=== PATIENT | female | born 1935 | race Caucasian/White ===

== ENCOUNTER 2023-08-07 14:03 | Emergency (ER) | payer OTHER, SELFPAY ==
[2023-08-07 14:10] VITALS: BP 210/110
[2023-08-07 14:28] LABS: % Basophils 0.7 % (0-2); % Eosinophils 1.8 % (0-6); % Immature Granulocytes 0.2 % (0-0.5); % Lymphocytes 23.8 % (20.5-51.1); % Monocytes 10.8 % (1.7-9.3); % Neutrophils 62.7 % (42.2-75.2); Absolute Eosinophils 0.1 10^3/uL (0-0.7); Absolute Lymphocytes 1.4 10^3/uL (1.2-3.4); Absolute Monocytes 0.7 10^3/uL (0.1-0.6); Absolute Neutrophils 3.8 10^3/uL (1.4-6.5); Hematocrit 33.2 % (37.0-47.0); Mean Corp Hgb Conc. 36.1 g/dL (33.0-37.0); Mean Corpuscular Hgb 33.8 pg (27.0-31.0); Mean Corpuscular Volume 93.5 fL (81.0-99.0); Mean Platelet Volume 9.1 fL (7.4-10.4); Nucleated Red Blood Cells % 0 %; Platelet Count 362 10^3/uL (130-400); Red Blood Cell Count 3.55 10^6/uL (4.20-5.40); Red Cell Dist. Width 12.6 % (11.5-14.5)
[2023-08-07 14:44] LABS: ALT (SGPT) 17 U/L (0-35); AST (SGOT) 28 U/L (14-36); Albumin 4.6 g/dl (3.5-5.0); Alkaline Phosphatase 55 U/L (38-126); Blood Urea Nitrogen 24 mg/dl (7-17); Calcium 10.3 mg/dl (8.4-10.2); Carbon Dioxide 23 mmol/L (22-30); Chloride 96 mmol/L (98-107); Glucose 124 mg/dl (70-99); Potassium 4.5 mmol/L (3.5-5.1); Sodium 129 mmol/L (135-145); Total Bilirubin 0.6 mg/dl (0.2-1.3); Total Protein 6.9 g/dl (6.3-8.2); eGFR 54.87
[2023-08-07 14:54] LABS: Troponin I < 0.012 ng/ml
[2023-08-07 16:06] VITALS: BP 208/94
[2023-08-07 16:07] VITALS: BP 201/114
[2023-08-07] MEDS: NORCO 5/325 1 TABLET PO ×2 (17:37→20:30)
[2023-08-07 18:08] VITALS: BP 210/109
[2023-08-07] MEDS: TORADOL 15 MG IV (19:35)
[2023-08-07] MEDS: NORVASC 2.5 MG PO (19:46)
[2023-08-07] MEDS: TRANDATE 100 MG PO (19:54)
[2023-08-07] MEDS: COZAAR 50 MG PO (19:55)
--- NOTE | 2023-08-07 22:46 | ED.MUSCINJ ---
HPI-Injury
General
Chief Complaint: Musculo-Skeletal Complaint
Source: patient
Exam Limitations: none
Time Seen by Provider: 08/07/23 16:56
Nursing documentation reviewed up to this point in time: agreed with
Travel History
Have you had any contact with someone who has COVID-19?: No
Do you have any symptoms of coronavirus? Fever > 100 degrees, chills, cough, shortness of breath, sore throat, loss of taste or smell, muscle aches, or headache?: No
History of Present Illness-Injury
Is this injury a work related problem?: No
Is pt an associate of [facility]?: No
Initial Injury comments:
Patient to ED with complaint of pain to left shoulder, left scapula. NO history of trauma. States she had an appointment scheduled today with ortho for steroid injections to her shoulders but decided to come here because the pain was worse today.
Denies fever/chills. Brought to ED by family for eval.
Past History
Past History
ED Past Medical History: GERD, HTN, Hypercholesterolemia and Other (Chronic back pain)
ED Past Surgical History: Appendectomy and Gynecological (Tubal)
Social History
Tobacco: Non-smoker
Alcohol: Daily
Drug: None
Personal:
Living: alone
Employment: Retired
Family History
Family History: Other (Noncontributory)
Review of Systems
Review of Systems
Allergies reviewed?: Yes
All Other Systems: ROS reviewed and negative except as documented in HPI and ROS
Constitutional: Reports no symptoms
EENT: Reports no symptoms
Respiratory: Reports no symptoms
Cardiac: Reports no symptoms
ABD/GI: Reports no symptoms
Musculoskeletal: Reports joint pain (Pain to left shoulder)
Skin: Reports no symptoms
Neurological: Reports no symptoms
Psychiatric: Reports no symptoms
Musculoskeletal Injury Exam
Musculoskeletal Injury Exam
Left Shoulder:
Pain with Movement?: Moderate
Tender to palpation?: Moderate
Soft tissue swelling?: None
External deformity and angulation?: None
Joint effusion?: None
Contusion?: None
Hematoma-local bleeding into tissue?: None
Strain- Sprain- Tear (Connective tissue injury)?: None
Crepitus with movement?: No
Joint instability?: No
Malalignment/deformity?: No
Range of motion: Limited
Distal skin color and temperature: normal-warm & good color
Capillary Refill: normal
Normal distal neurovascular exam?: Yes
Peripheral Pulses: radial (left): 3+
Phy Exam
General Physical Exam
General Presentation: well appearing and no apparent distress
General age: appears stated age
General Skin: warm and dry
General Habitus: normal
General Mental: alert
Musculoskeletal Exam
Musculoskeletal Exam: neuro vasc intact
Skin Exam
Skin Exam: normal color and warm/dry
Psychiatric Exam
Psychiatric Exam: normal mood/affect
Injury Course
Orders/Labs/Results
Orders:
Orders
08/07/23 14:05
ECG [Electrocardiogram (*1)] Urgent
Reason for Study: Chest Pain
08/07/23 14:06
EKG- Treatment ONCE
08/07/23 14:21
Complete Blood Count/With Diff Urgent
Comprehensive Metabolic Panel Urgent
Troponin I Urgent
08/07/23 16:36
CR Shoulder - Left Min 2 View* Urgent
Comment:
Reason For Exam: pain
CXR2 [CR Chest - 2 Views ] Urgent
Comment:
Reason For Exam: pain
08/07/23 17:34
Hydrocodone 5/APAP 325 [Vermillion 5/325] 1 tablet PO NOW STA
08/07/23 18:40
Ketorolac [Toradol] 15 mg IV NOW STA
08/07/23 19:06
Amlodipine [Norvasc] 2.5 mg PO NOW STA
Losartan [Cozaar] 50 mg PO NOW STA
08/07/23 19:43
Labetalol [Trandate] 100 mg PO NOW STA
08/07/23 20:17
Hydrocodone 5/APAP 325 [Vermillion 5/325] 1 tablet PO NOW STA
Abnormal Lab Results
08/07/23
14:21
RBC 3.55 L 10^6/uL
(4.20-5.40)
Hct 33.2 L %
(37.0-47.0)
MCH 33.8 H pg
(27.0-31.0)
Absolute Monos (auto) 0.7 H 10^3/uL
(0.1-0.6)
Monocytes % 10.8 H %
(1.7-9.3)
Sodium 129 L mmol/L
(135-145)
Chloride 96 L mmol/L
(98-107)
BUN 24 H mg/dl
(7-17)
Glucose 124 H mg/dl
(70-99)
Calcium 10.3 H mg/dl
(8.4-10.2)
08/07/23 14:21
08/07/23 14:21
*Radiology
Radiology exam reviewed: radiology read reviewed
*Pulse Oximetry
Patient hypoxic: no
*Critical Care Note
Total Time (30-74mins, 75-104mins- exclusive of procedures): Not Applicable
Update Note
Update Note:
Improved after pain medications. She is discharged home and will reschedule her orthopedic appointment.
ED Attending Note
-
Portions of this chart may have been created with voice recognition software.� Occasional wrong word or��sound alike� substitutions may have occurred due to the inherent limitations of voice recognition software.
Discharge Plan
Departure
Patient Disposition: Home (Routine Discharge)
Date of Disposition: 08/07/23
Time of Disposition: 20:17
Patient with high blood pressure during this ER visit?: No
Condition: Good
Covid-19: Not Applicable
Discharge Problem:
Musculoskeletal pain
Instructions: Muscle and Bone Pain (DC), Using Cold for Pain
Prescriptions:
New
hydrocodone-acetaminophen 5-325 mg tablet
1 tab PO Q4H PRN (Reason: Pain) Qty: 10 0RF
No Action
docusate sodium 100 MG capsule
100 mg PO DAILY
multivitamin 1 EACH tablet
1 ea PO DAILY
famotidine 40 MG tablet
40 mg PO DAILY PRN (Reason: reflux)
lorazepam 0.5 MG tablet
0.5 mg PO BID PRN (Reason: anxiety)
Patient Comments:
08/07/2023: last filled 07/25/23, 60 tabs for 30 days from [facility]#[id number]
losartan 50 mg tablet
50 mg PO BID
amlodipine 2.5 mg tablet
2.5 mg PO QPM
labetalol 100 mg tablet
100 mg PO BID
cholecalciferol (vitamin D3) 25 mcg (1,000 unit) Tablet
75 mcg PO DAILY
Referrals:
Jose Guadalupe Beckford MD [Family Provider] - Tomorrow
Interventions
Interventions:
*Risk Screen - Suicide Last Done: 08/07/23 17:01
*General Assessment Last Done: 08/07/23 17:01
*Neglect/Abuse Screening Last Done: 08/07/23 17:01
*Nursing Disposition Last Done: 08/07/23 20:45
ED-Musculoskeletal Assessment Last Done: 08/07/23 17:01
Discharge Date and Time
Discharge Date/Time: 08/07/23 20:46
Print Language: RUSSIAN
== END 2023-08-07 20:46 | disposition home or self-care (01) ==
LOC: EMR 14:03
PROVIDERS: Emergency Medicine; EMERGENCY PHYSICIAN Emergency Medicine; FAMILY PHYSICIAN Family Medicine
DX: M79.18 Myalgia, other site (principal); K21.9 Gastro-esophageal reflux disease without esophagitis; I10 Essential (primary) hypertension; E78.00 Pure hypercholesterolemia, unspecified; G89.29 Other chronic pain; Z90.49 Acquired absence of other specified parts of digestive tract
CPT/HCPCS: 99283; 71046; 73030; 80053; 84484; 85025; 93005

== ENCOUNTER 2024-08-21 10:34 | Emergency (ER) | payer OTHER, SELFPAY ==
[2024-08-21 10:36] VITALS: BP 179/95
[2024-08-21 10:49] LABS: % Basophils 0.6 % (0-2); % Eosinophils 1.8 % (0-6); % Immature Granulocytes 0.2 % (0-0.5); % Lymphocytes 19.2 % (20.5-51.1); % Monocytes 10.4 % (1.7-9.3); % Neutrophils 67.8 % (42.2-75.2); Absolute Eosinophils 0.1 10^3/uL (0-0.7); Absolute Lymphocytes 1.2 10^3/uL (1.2-3.4); Absolute Monocytes 0.7 10^3/uL (0.1-0.6); Absolute Neutrophils 4.2 10^3/uL (1.4-6.5); Hematocrit 32.9 % (37.0-47.0); Hemoglobin 11.6 g/dL (12.0-16.0); Mean Corp Hgb Conc. 35.3 g/dL (33.0-37.0); Mean Corpuscular Volume 93.5 fL (81.0-99.0); Mean Platelet Volume 9.6 fL (7.4-10.4); Nucleated Red Blood Cells % 0 %; Platelet Count 364 10^3/uL (130-400); Red Blood Cell Count 3.52 10^6/uL (4.20-5.40); Red Cell Dist. Width 11.9 % (11.5-14.5); White Blood Cell Count 6.3 10^3/uL (4.8-10.8)
[2024-08-21 11:08] LABS: ALT (SGPT) 15 U/L (0-35); AST (SGOT) 25 U/L (14-36); Albumin 4.7 g/dl (3.5-5.0); Alkaline Phosphatase 63 U/L (38-126); Blood Urea Nitrogen 28 mg/dl (7-17); Calcium 9.8 mg/dl (8.4-10.2); Carbon Dioxide 19 mmol/L (22-30); Chloride 101 mmol/L (98-107); Glucose 106 mg/dl (70-99); Lipase 68 U/L (23-300); Potassium 4.6 mmol/L (3.5-5.1); Sodium 130 mmol/L (135-145); Total Protein 6.9 g/dl (6.3-8.2); eGFR 33.52
[2024-08-21] MEDS: OMNIPAQUE 50 ML PO (12:01)
--- NOTE | 2024-08-21 12:09 | ED.GENMED ---
History of Present Illness
General
Chief Complaint: Abdominal Symptoms
Time Seen by Provider: 08/21/24 11:33
History of Present Illness
History of Present Illness:
89-year-old female history of hypertension, hyperlipidemia, constipation presenting with constipation. Patient says that she has not had a bowel movement for the past 4 days. Patient states that she feels full, is not eating for the past 2 days
initially because she felt full but then was concerned that she was worsening obstruction so she stopped eating. Patient denies nausea, vomiting, abdominal pain. Patient states that she still passing gas. Patient denies history of abdominal
surgeries. Patient states that she took Dulcolax and MiraLAX 2 days ago with no relief. Patient is greatly concerned she has a bowel obstruction prompting ED arrival today.
Past History
Past History
ED Past Medical History: GERD, HTN, Hypercholesterolemia and Other (Chronic back pain)
ED Past Surgical History: Appendectomy and Gynecological (Tubal)
Social History
Tobacco: Non-smoker
Alcohol: Daily
Drug: None
Personal:
Living: alone
Employment: Retired
Family History
Family History: Other (Noncontributory)
Phy Exam
Physical Exam
Physical Exam:
General: Alert, no acute distress
Head: NCAT
Eyes: clear conjunctiva
Neck: supple
Cardiac: regular rate and rhythm, no murmur
Lungs: clear to auscultation bilaterally. No wheezes, rales, or rhonchi. Speaking full unlabored sentences. No respiratory distress.
Abdomen: soft, nondistended nontender. No rebound or guarding.
MSK: no lower extremity edema bilaterally. No deformity
Skin: warm, dry
Neuro: Alert and oriented x3. no focal deficits
Course
Orders/Labs/Results
Orders:
Orders
08/21/24 10:41
Complete Blood Count/With Diff Urgent
Comprehensive Metabolic Panel Urgent
Lipase Urgent
08/21/24 11:54
CT Abd/pel W Iv And Oral Contr Urgent
Comment:
Reason For Exam: r/o bowel obstruction
Iohexol [Omnipaque] See Protocol PO NOW STA
Abnormal Lab Results
08/21/24
10:41
RBC 3.52 L 10^6/uL
(4.20-5.40)
Hgb 11.6 L g/dL
(12.0-16.0)
Hct 32.9 L %
(37.0-47.0)
MCH 33.0 H pg
(27.0-31.0)
Absolute Monos (auto) 0.7 H 10^3/uL
(0.1-0.6)
Lymphocytes % 19.2 L %
(20.5-51.1)
Monocytes % 10.4 H %
(1.7-9.3)
Sodium 130 L mmol/L
(135-145)
Carbon Dioxide 19 L mmol/L
(22-30)
BUN 28 H mg/dl
(7-17)
Creatinine 1.5 H mg/dL
(0.6-1.0)
Glucose 106 H mg/dl
(70-99)
08/21/24 10:41
08/21/24 10:41
Vital Signs
Initial and Last Documented VS:
Initial Vital Signs
Temp Pulse Resp BP Pulse Ox
97.6 F 82 20 179/95 100
08/21/24 10:36 08/21/24 10:36 08/21/24 10:36 08/21/24 10:36 08/21/24 10:36
Last Documented Vital Signs
Temp Pulse Resp BP Pulse Ox
97.6 F 69 14 193/78 98
08/21/24 10:36 08/21/24 15:30 08/21/24 15:30 08/21/24 15:00 08/21/24 15:30
MDM/Problems Addressed
Differential Diagnosis Includes:
Constipation, bowel obstruction, fecal impaction
MDM/Problems Addressed:
Labs reviewed. Significant for baseline anemia at 11.6. Slight SUZY with creatinine 1.8 (baseline 1-1.3). Baseline hyponatremia. CT abdomen pelvis shows no significant acute abnormality identified in the abdomen or pelvis. No large stool burden
visualized. Discussed results with patient at bedside. Patient states that she has an appointment with her GI doctor next week. Stable for discharge with GI follow-up. Advised to take MiraLAX as needed for constipation
*Critical Care Note
Total Time (30-74mins, 75-104mins- exclusive of procedures): Not Applicable
ED Attending Note
-
Portions of this chart may have been created with voice recognition software.� Occasional wrong word or��sound alike� substitutions may have occurred due to the inherent limitations of voice recognition software.
Discharge Plan
Departure
Patient Disposition: Home (Routine Discharge)
Date of Disposition: 08/21/24
Time of Disposition: 15:35
Patient with high blood pressure during this ER visit?: Yes
Discharge Problem:
Constipation
Instructions: Constipation, Adult (DC), BLOOD PRESSURE
Prescriptions:
No Action
docusate sodium 100 MG capsule
100 mg PO DAILY
multivitamin 1 EACH tablet
1 ea PO DAILY
famotidine 40 MG tablet
40 mg PO DAILY PRN (Reason: reflux)
lorazepam 0.5 MG tablet
0.5 mg PO BID PRN (Reason: anxiety)
Patient Comments:
08/07/2023: last filled 07/25/23, 60 tabs for 30 days from [facility]#[id number]
losartan 50 mg tablet
50 mg PO BID
amlodipine 2.5 mg tablet
2.5 mg PO QPM
labetalol 100 mg tablet
100 mg PO BID
cholecalciferol (vitamin D3) 25 mcg (1,000 unit) Tablet
75 mcg PO DAILY
hydrocodone-acetaminophen 5-325 mg tablet
1 tab PO Q4H PRN (Reason: Pain) Qty: 10 0RF
Referrals:
Jose Guadalupe Beckford MD [Family Provider, Family Practice]
Activity Restrictions/Additional Instructions:
Take MiraLAX daily
Follow-up with GI as scheduled next week
Return to the emergency department for vomiting, abdominal pain or new/worsening symptoms
Interventions
Interventions:
*Risk Screen - Suicide Last Done: 08/21/24 10:36
*General Assessment Last Done: 08/21/24 10:36
*Neglect/Abuse Screening Last Done: 08/21/24 12:48
*ED- Fall Risk Assessment Last Done: 08/21/24 12:48
*ED COVID-19 Vaccine History Last Done: 08/21/24 12:48
*Nursing Disposition Last Done: 08/21/24 15:39
KT-Kcxdkl-Credrkjzde Assessment Last Done: 08/21/24 12:48
Discharge Date and Time
Discharge Date/Time: 08/21/24 16:05
Print Language: GEORGIAN
[2024-08-21 12:57] VITALS: BP 195/108
[2024-08-21 13:00] VITALS: BP 206/95
[2024-08-21 15:00] VITALS: BP 193/78
== END 2024-08-21 16:05 | disposition home or self-care (01) ==
LOC: EMR 10:34
PROVIDERS: Emergency Medicine; EMERGENCY PHYSICIAN Emergency Medicine; FAMILY PHYSICIAN Family Medicine
DX: K59.00 Constipation, unspecified (principal); I10 Essential (primary) hypertension; E78.00 Pure hypercholesterolemia, unspecified; K21.9 Gastro-esophageal reflux disease without esophagitis; Z90.49 Acquired absence of other specified parts of digestive tract
CPT/HCPCS: 99284; 74177; 80053; 83690; 85025; Q9967